=== PATIENT | male | born 1955 | race Caucasian/White ===

== ENCOUNTER 2018-06-12 11:33 | Emergency (ER) | payer OTHER ==
[2018-06-12] MEDS ORDERED: Fentanyl 100 MCG/2 ML VIAL ONE (12:07)
--- NOTE | 2018-06-12 13:42 | RAD ---
LEFT SHOULDER 4 VIEWS: DATE: 06/12/18. FINDINGS: The humeral head appears to be dislocated slightly posterior to the glenohumeral joint. No major fra cture was identified. The AC joint shows slight offset but o widening. There is a babatunde of bone at the tip of the AC joint. I do not know if this is old or new. There is slight irregularity of the h umeral head on some views of the articular surface of the humeral head on some views. IMPRESSION: Slight posterior dislocation of the humeral head. POS: HOME
--- NOTE | 2018-06-12 13:47 | RAD ---
LEFT SHOULDER: DATE: 06/12/18. FINDINGS: There has been successful reduction of dislocation. The glenohumeral articulation is now normal. Mi ld offset of the AC persists along with a babatunde of bone near the tip of the acromion and the joint. I cannot tell if this is new or old. IMPRESSION: Successful reduction. POS: HOME
== END 2018-06-12 13:57 | disposition home or self-care (01) ==
LOC: BURERS 11:33
DX: S43.015A Anterior dislocation of left humerus, initial encounter (principal); S00.33XA Contusion of nose, initial encounter; V80.010A Animal-rider injured by fall from or being thrown from horse in noncollision accident, initial encounter
CPT/HCPCS: 96374; 96375; J3010